=== PATIENT | male | born 1970 | race Caucasian/White ===

== ENCOUNTER 2017-08-21 05:23 | Inpatient (IN) | payer MEDICAID ==
[~2017-08-21] VITALS: Ht 154.9 cm; Wt 72.6 kg
[~2017-08-21 05:23] MED LIST: DEPER5 PO; DIVA250T4 PO; LURA80TA PO; PANT40TA4 PO; PHEN-434 PO; PHEN100C12 PO; SERT100T PO; TRAZ-129 PO; ZONI100C34 PO
[2017-08-21] MEDS ORDERED: LACTATED RINGERS 1,000 ML IV SCH (07:15)
[2017-08-21] MEDS ORDERED: BUPIVACAINE HCL/PF 0.5% (5MG/ML) 10ML ONE (08:20)
[2017-08-21] MEDS ORDERED: LIDOCAINE HCL 1% 20ML VIAL (Pyxis) INJ ONE (08:21)
[2017-08-21] MEDS ORDERED: FENTANYL CITRATE/PF 50MCG/ML 2ML VIAL ONE (08:22)
[2017-08-21] MEDS ORDERED: PROPOFOL 200MG/20ML VIAL IV ONE ×2 (08:22→08:38)
[2017-08-21] MEDS ORDERED: MIDAZOLAM HCL 2 MG/2 ML VIAL ONE (08:22)
[2017-08-21] MEDS ORDERED: LIDOCAINE HCL/PF 1% 10 MG/ML 5ML VIAL ONE (08:22)
[2017-08-21] MEDS ORDERED: ONDANSETRON HCL 4MG/2ML VIAL ONE (08:23)
[2017-08-21] MEDS ORDERED: CEFAZOLIN SODIUM 1000MG/VIAL ONE (08:23)
[2017-08-21] MEDS ORDERED: MIDAZOLAM HCL 2 MG/2 ML VIAL IV ONE (09:00)
[2017-08-21] MEDS ORDERED: ONDANSETRON HCL 4MG/2ML VIAL IV ONE (09:00)
[2017-08-21 12:30] VITALS: BP 103/60
[2017-08-21 15:05] VITALS: BP 103/64
[2017-08-21 16:00] VITALS: BP 104/97
[2017-08-21 20:00] VITALS: BP 114/47
[2017-08-21] MEDS ORDERED: PHENYTOIN SODIUM 30 MG PO SCH (21:00)
[2017-08-21] MEDS ORDERED: LURASIDONE HCL 80 MG PO SCH (21:00)
[2017-08-21] MEDS ORDERED: PHENYTOIN SODIUM EXTENDED 100MG CAPSULE PO SCH (21:00)
[2017-08-21] MEDS ORDERED: TRAZODONE HCL 50MG TABLET PO SCH (21:00)
[2017-08-22] VITALS: BP 100/62
[2017-08-22 04:00] VITALS: BP 95/53
[2017-08-22 05:54] LABS: BASOPHILS % 0.7 % (0.0-2.0); EOSINOPHILS % 2.2 % (0.0-5.0); HEMATOCRIT. 40.2 % (42.0-52.0); HEMOGLOBIN. 13.6 g/dL (14.0-18.0); LYMPHOCYTES % 35.3 % (20.0-50.0); MEAN CORPUSCULAR HEMOGLOBIN 31.3 pg (28.0-32.0); MEAN CORPUSCULAR VOLUME 92.7 fL (80.0-94.0); MEAN PLATELET VOLUME 8.5 fl (7.4-10.4); MONOCYTES % 6.4 % (2.0-8.0); NEUTROPHILS % 55.4 % (40.0-76.0); PLATELET 237 x1000/uL (130-400); RED BLOOD CELL COUNT 4.34 mill/uL (4.7-6.1); RED CELL DISTRIBUTION WIDTH 13.5 % (11.6-14.6)
[2017-08-22 06:42] LABS: CHLORIDE 112 mEq/L (98-107)
[2017-08-22 08:00] VITALS: BP 95/55
[2017-08-22] MEDS ORDERED: DIVALPROEX SODIUM 500MG ER TABLET PO SCH (09:00)
[2017-08-22] MEDS ORDERED: ZONISAMIDE 100MG CAPSULE PO SCH (09:00)
[2017-08-22] MEDS ORDERED: PANTOPRAZOLE 40MG DR TABLET PO SCH (09:00)
[2017-08-22] MEDS ORDERED: SERTRALINE HCL 100MG TABLET PO SCH (09:00)
[2017-08-22] MEDS ORDERED: DIVALPROEX SODIUM 250MG ER TABLET PO SCH (09:00)
[2017-08-22 12:00] VITALS: BP 109/67
== END 2017-08-22 13:25 | disposition left against medical advice (07) | DRG 263 ==
LOC: OR 05:23 → 6EST 05:24
PROVIDERS: ADMIT Specialist; ATTEND Specialist
PROC: 0FT44ZZ Resection of Gallbladder, Percutaneous Endoscopic Approach (ICD-10-PCS; principal; 2017-08-21 07:30)
PROC: 4A00X4Z Measurement of Central Nervous Electrical Activity, External Approach (ICD-10-PCS; 2017-08-22)
DX: K80.10 Calculus of gallbladder with chronic cholecystitis without obstruction (principal); E87.8 Other disorders of electrolyte and fluid balance, not elsewhere classified; B19.20 Unspecified viral hepatitis C without hepatic coma; G40.909 Epilepsy, unspecified, not intractable, without status epilepticus; D64.9 Anemia, unspecified; F31.9 Bipolar disorder, unspecified; K60.3 Anal fistula; Y99.0 Civilian activity done for income or pay; Z53.21 Procedure and treatment not carried out due to patient leaving prior to being seen by health care provider
CPT/HCPCS: 36415; 80048; 80165; 80185; 85025; J0690; J2250; J2405; J2704; J3010; J3490; J7120